=== PATIENT | female | born 1965 | race Caucasian/White ===

== ENCOUNTER 2022-11-13 12:30 | Outpatient (CLI) | payer OTHER | END 2022-11-13 12:39 | disposition home or self-care (01) | LOC: RAD 12:30 | PROVIDERS: ATTEND Orthopaedic Surgery | DX: S93.492A Sprain of other ligament of left ankle, initial encounter (principal); S92.355A Nondisplaced fracture of fifth metatarsal bone, left foot, initial encounter for closed fracture ==